=== PATIENT | female | born 1965 | race Caucasian/White ===

== ENCOUNTER 2021-02-18 19:27 | Emergency (ER) | payer OTHER ==
[2021-02-19 02:01] LABS: INFLUENZA A NAA NEGATIVE (NEGATIVE)
[2021-02-19 02:03] LABS: CORONAVIRUS 2019 SARS-COV-2 POSITIVE (NEGATIVE)
[2021-02-19 04:11] LABS: BASOPHIL 0.5 % (0-2); EOSINOPHIL 0.5 % (0-5); HCT 45.2 % (37.0-47.0); HGB 14.9 g/dl (12.5-16.0); LYMPHOCYTE 26.6 % (15-48); MCH 30.8 pg (25.0-31.0); MCV 93.6 fL (78.0-100.0); MONOCYTE 9.7 % (0-12); MPV 10.7 fL (6.0-9.5); NEUTROPHIL 62.2 % (41-80); NRBC 0; PLT 143 K/uL (150-400); RBC 4.83 M/uL (4.20-5.40); WBC 4.4 K/uL (4.0-10.5)
[2021-02-19 04:26] LABS: BUN/CREAT RATIO (CALC) 20.7 RATIO; CREATININE 0.58 mg/dL (0.51-0.95); POTASSIUM 4.1 mmol/L (3.5-5.1)
[2021-02-19] MEDS ORDERED: ROBITUSSIN W/COD5 ML PO (07:09)
[2021-02-19] MEDS ORDERED: ONDANSETRON ODT4 MG SL (07:09)
== END 2021-02-19 07:32 | disposition home or self-care (01) ==
LOC: FER 19:27
PROVIDERS: Emergency Medicine Emergency Medical Services
DX: U07.1 COVID-19 (principal); I10 Essential (primary) hypertension
CPT/HCPCS: 36415; 71045; 71275; 80048; 85025; 85379; J0696; M0243; Q0244; Q9967; U0002